=== PATIENT | female | born 1995 | race Caucasian/White ===

== ENCOUNTER 2016-09-30 18:16 | Emergency (ER) | payer OTHER ==
[~2016-09-30] VITALS: Ht 160 cm; Wt 75.1 kg
[2016-09-30 18:20] VITALS: TEMP 36.7; Ht 160 cm; Wt 75.1 kg
[2016-09-30] MEDS ORDERED: INSPMPHMLG (19:24)
[2016-09-30] MEDS ORDERED: PARO30TA PO (19:24)
[2016-09-30] MEDS ORDERED: PARO1TAB27 PO (19:24)
--- NOTE | 2016-09-30 21:46 | EMERGENCY ROOM VISIT NOTE ---
ED Visit Note First contact with patient: 18:24 CHIEF COMPLAINT: Lost insulin-dependent pump site, does not have glucometer HISTORY OF PRESENT ILLNESS: Patient is a 21-year-old insulin-requiring diabetic who uses an and swollen, who presents to the emergency department for evaluation after she lost her in slow pump site and does not have her glucometer to check her blood sugars. She is here from [place] for the concert at [facility]. She states that she had 3 extra pump sites, but due to the heat, and sweating, she lost the sites multiple times throughout the day. She also does not have her glucometer, she believes it may have fallen out of her bag. She has been unable to check her blood sugars. She states that she was able to get a fragile site in her leg about 90 minutes ago, and gave herself a bolus. She felt nauseous, had a headache and felt very thirsty and had a dry mouth earlier in the day. She does admit to consuming 6 or 7 small liquor beverages earlier in the day, she stopped drinking when she started having problems with her pump. She states that she has not had any alcohol for over 2 hours. She has not had much to eat or drink today otherwise. Her blood sugar was checked in triage and was 135, which she states is excellent for her. She would not correct for a BSG of 135 with her pump. PMH: Type I diabetic, diagnosed at age 8. SOCIAL HISTORY: Patient lives at home with her mother. She is employed. Positive tobacco use, social EtOH. PHYSICAL EXAM: Vital Signs: Reviewed Nurse's notes. The patient appears well and is in no acute distress. There is no slurring of speech, pupils are round equal and react to light, and the gait is normal. The patient is alert, oriented, and coherent. ED course: The patient was seen and assessed as above. BSG was checked in triage as stated above and was 135. The patient was ordered a dinner tray and oral fluids, however after 90 minutes when I went to evaluate the patient, she had not yet received her tray and BSG had been rechecked by nursing staff and was 70. She was given orange juice. Patient was beginning to feel little bit symptomatic with the hypoglycemia and felt a little bit shaky/jittery. She remained hemodynamically stable. She did receive her meal tray and ate. She was reassessed roughly 1 hour later, and BSG was rechecked and was 222. She was asleep, feeling better and did not want any subcutaneous insulin-dependent at this time. The patient's grandmother is coming to get her. Her blood sugar was checked when her ride presented to the emergency department and was 291. She was given Regular Insulin 5 units subcutaneous prior to discharge. She is comfortable with this. She will be home within the hour to reestablish her pump , and is comfortable that she can manage this at home on her own. Differential diagnoses entertained included hyperglycemia, hypoglycemia, electrolyte or metabolic abnormality, dehydration, alcohol intoxication, among others. She is not demonstrating any signs of DKA. Medication reconciliation: I attest that I have personally reviewed the patient' s current medication list. Blood pressure screening : Patient was found to have normal blood pressure on screening and does not require follow-up. Problem List Medical Problems: (1) Anxiety Status: Chronic (2) Type I diabetes mellitus Status: Chronic Current/Historical Medications Scheduled Insulin Human Lispro (Insulin Humalog Pump ), 1 EA N/A UD Paroxetine Hcl (Paxil), 30 MG PO DAILY Allergies Coded Allergies: No Known Allergies (Unverified , 09/30/16) Vital Signs Date Time Temp Pulse Resp B/P (MAP) Pulse Ox O2 Delivery O2 Flow Rate FiO2 09/30/16 19:56 108 20 131/86 99 Room Air 09/30/16 18:20 36.7 106 20 128/83 96 Room Air Laboratory Results Test 09/30/16 21:05 Bedside Glucose 222 mg/dl (70-90) Departure Information Impression Primary Impression: Displacement of insulin pump Additional Impression: Hx of insulin dependent diabetes mellitus Patient Instructions My [facility] Additional Instructions Resume your insulin-dependent pump when you return home, and correct blood sugars accordingly. Check blood sugars frequently until within normal range. Seek immediate medical attention for extreme high or low blood sugars, or if you 're unable to correct her blood sugars with your pump, or if he becomes symptomatic. Follow-up with your primary care provider next week for further care and management. Problem Qualifiers Primary Impression: Displacement of insulin pump Encounter type: initial encounter Qualified Codes: T85.624A - Displacement of insulin pump, initial encounter
[2016-09-30] MEDS ORDERED: NovoLIN-R INSULIN PER UNIT CHARGE SC STA (21:58)
[2016-09-30 22:15] VITALS: BP 120/75; PULSE 100; O2SAT 96
== END 2016-09-30 22:18 | disposition home or self-care (01) ==
LOC: C.EDB 18:18 → C.EDC 22:18
DX: T85.624A Displacement of insulin pump, initial encounter (principal); E10.9 Type 1 diabetes mellitus without complications; X58.XXXA Exposure to other specified factors, initial encounter; F17.200 Nicotine dependence, unspecified, uncomplicated; F41.9 Anxiety disorder, unspecified

== ENCOUNTER 2016-12-13 02:34 | Emergency (ER) | payer OTHER ==
[~2016-12-13] VITALS: Ht 157.5 cm; Wt 79.5 kg
[~2016-12-13 02:34] MED LIST: INSPMPHMLG; PARO30TA PO
[2016-12-13 02:37] VITALS: TEMP 37.2; Ht 157.5 cm; Wt 79.5 kg
[2016-12-13] MEDS ORDERED: SODIUM CHLORIDE 0.9% 1000ML 2,000 ML IV STA (02:46)
[2016-12-13] MEDS ORDERED: NovoLIN-R INSULIN PER UNIT CHARGE IV STA (02:46)
[2016-12-13 03:35] LABS: BUN/CREATININE RATIO 8.9 (10-20); CALCIUM 8.4 mg/dl (8.5-10.1); CREATININE 0.81 mg/dl (0.60-1.20); POTASSIUM 3.2 mmol/L (3.5-5.1); PREG INTERNAL NEGATIVE QC NEG CLEAR BACKGROUND; PREG INTERNAL POSITIVE QC POS CONTROL LINE
[2016-12-13 03:51] LABS: BETA-HYDROXYBUTYRATE 2.64 mg/dL (0.2-2.81)
[2016-12-13 04:21] LABS: VEN BLD GAS O2 SATURATION 88.6 %; VEN BLOOD GAS BASE EXCESS -3.7 mEq/L
--- NOTE | 2016-12-13 04:33 | EMERGENCY ROOM VISIT NOTE ---
History Report prepared by Malaibaashish: Cheikh Castro Under the Supervision of: Dr. Lan Duran M.D. First contact with patient: 02:35 Stated Complaint: ALCOHOL OVERDOSE/TYPE I DIABETIC 485 GLUCOSE History of Present Illness The patient is a 21 year old female who presents to the Emergency Room by EMS for evaluation of constant alcohol intoxication beginning shortly prior to arrival. [place] by police. She was breathalyzed and blew a 0.24. The patient has a history of Type I diabetes and was found to have a blood sugar of 485 on scene. She states that her blood sugar tends to run high. She has an insulin pump. The patient denies any chest pain, SOB, fevers, or abdominal pain. She denies any chance of . Source of History: patient, EMS Onset: Shortly prior to arrival Symptom Intensity: BENITO of 0.24 Quality: other (alcohol intoxication) Timing: constant Associated Symptoms: No fevers, No chest pain, No SOB, No abdominal pain Note: Additional symptoms: hyperglycemia. Review of Systems See HPI for pertinent positives & negatives. A total of 10 systems reviewed and were otherwise negative. Past Medical & Surgical Medical Problems: (1) Anxiety (2) Type I diabetes mellitus Family History No pertinent family history stated. Social History Smoking Status: Current Some Day Smoker Occupation Status: student Current/Historical Medications Scheduled Insulin Human Lispro (Insulin Humalog Pump ), 1 EA N/A UD Paroxetine Hcl (Paxil), 30 MG PO DAILY Allergies Coded Allergies: No Known Allergies (Unverified , 12/13/16) Physical Exam Vital Signs Date Time Temp Pulse Resp B/P (MAP) Pulse Ox O2 Delivery O2 Flow Rate FiO2 12/13/16 05:04 97 18 111/66 97 12/13/16 04:40 108 18 111/68 95 Room Air 12/13/16 03:30 101 18 119/63 91 Room Air 12/13/16 02:37 37.2 104 16 133/79 95 Room Air Physical Exam GENERAL: Patient is mildly intoxicated. Smells of alcohol. Well appearing and in no acute distress. HEAD: No evidence of Trauma. AT/NC EYES: Normal conjunctiva. Normal EOM. Pupils equal/reactive. ENT: Mucous membranes moist, no nasal congestion, . NECK: No step-offs, no adenopathy, no meningismus, trachea is midline. LUNGS: No dyspnea. Clear to auscultation and equal bilaterally. No wheeze, no rhonchi. HEART: Regular rate and rhythm. No murmurs, rubs, gallops appreciated. ABDOMEN: Soft, nontender, bowel sounds positive, no masses appreciated, no peritonitis. BACK: No midline tenderness, no CVA tenderness EXTREMITIES: Normal motion all extremities, no cyanosis, no edema. NEUROLOGIC: Intoxicated. Alert, oriented. No acute motor or sensory deficits, no focal weakness, cranial nerves grossly intact. SKIN: No rash, no jaundice, no diaphoresis. Medical Decision & Procedures Laboratory Results 12/13/16 02:53 Test 12/13/16 02:53 12/13/16 03:42 12/13/16 04:57 Anion Gap 11.0 mmol/L (3-11) Est Creatinine Clear Calc Drug Dose 106.4 ml/min Estimated GFR () 119.5 Estimated GFR (Non- 103.1 BUN/Creatinine Ratio 8.9 (10-20) Calcium Level 8.4 mg/dl (8.5-10.1) Beta-Hydroxybutyric Acid 2.64 mg/dL (0.2-2.81) Human Chorionic Gonadotropin, Qual NEG (NEG) Ethyl Alcohol mg/dL 252.0 mg/dl (0-3) Venous Blood pH 7.33 (7.36-7.41) Venous Blood Partial Pressure CO2 43 mmHg (38.0-50.0) Venous Blood Partial Pressure O2 63 mmHg Venous Blood HCO3 22 mmol/L Venous Blood Oxygen Saturation 88.6 % Venous Blood Base Excess -3.7 mEq/L Laboratory results as reviewed by me. Medications Administered Medications (Trade) Dose Ordered Sig/Jefe Route Start Time Stop Time Status Last Admin Dose Admin Sodium Chloride 2,000 ml @ 999 mls/hr Q2H1M STAT IV 12/13/16 02:46 12/13/16 04:46 DC 12/13/16 03:01 999 MLS/HR Insulin Human Regular (novoLIN-R U-100 PER UNIT) 10 units NOW STAT IV 12/13/16 02:46 12/13/16 02:48 DC 12/13/16 03:12 10 UNITS ED Course 0236: The patient was evaluated in room B7. A complete history and physical exam was performed. 0246: Ordered Novolin-R U-100 Per Unit 10 units IV, Sodium Chloride 2000 ml @ 999 mls/hr IV. 0251: I reassessed the patient. She is sleeping. 0430: The patient is awake and would like to go home. Reevaluated the patient. Discussed results and discharge instructions: she verbalized understanding and agreement. She admits that she may have given herself some insulin with her pump prior to arrival. 0500: The patient is ready for discharge. Medical Decision Differential: Alcohol Intoxication, Drug Intoxication, Electrolyte Abnormality, Trauma, Intracranial Event, Toxicological, Excited Delirium, Serotonin Syndrome , amongst other pathologies entertained. 21 yr old female arrives intoxicated with hyperglycemia. Admits DMI that is poorly controlled. Denies any infectious symptoms and admits she rarely keeps BSG under control, especially when drinking etoh. Initially made clear she did not bolus insulin this evening. No trauma nor injuries. Given IV fluids and IV insulin. BSG continued to drop over next 2 hours to point where I felt giving her some OJ necessary. Stabilized at around 80s and she is feeling fine. She does admit that she may have given bolus to herself around EMS time. Would suspect this is why BSG dropped so quickly. She has no headache, neuro issues nor complaints. She states she wishes to go home. Sober friend with her here. They both agree that she will check her BSG at home. Aware RTED if worsening or other concerns. Medication Reconcilliation Current Medication List: was personally reviewed by me Blood Pressure Screening Patient's blood pressure: Elevated blood pressure Blood pressure disposition: Elevated BP felt to be situational Impression Primary Impression: Alcohol use with intoxication Additional Impression: Hyperglycemia Scribe Attestation The scribe's documentation has been prepared under my direction and personally reviewed by me in its entirety. I confirm that the note above accurately reflects all work, treatment, procedures, and medical decision making performed by me. Departure Information Dispostion Home / Self-Care Referrals No Doctor, Assigned (PCP) Patient Instructions My [facility] Additional Instructions Please keep your blood sugars under control. Both short term and residential it is very dangerous to allow your sugars to stay so elevated. Please discuss this further with your primary care provider and or claims agent right of way. You were evaluated in emergency department for intoxication. This is a sign of Alcohol Abuse and should not be taken lightly. You had a blood alcohol level that was significantly elevated. Over the next 24 hours keep well hydrated and eat light meals. Don't drink any more alcohol. This is important. Please discuss this visit with your Primary Care Provider and/or your loved ones. Unless an exceptional circumstance, the Hospital DOES NOT contact anyone DURING your visit, nor is your Protected Medical Information released to anyone without your approval/request. This means we do not contact your Parents, the Police, etc. However, you will likely receive a bill from the Hospital and/or your Insurance company, which will usually be sent to the Primary Policy [place] (often one's Parents). Furthermore, as a student, your visit report will likely be sent to [facility] as your primary care provider, unless other Provider listed. If the Police were involved you will likely be cited for public intoxication. Please contact either [facility] Police or the [place] Police for further information. Call 911 or return to Emergency Department if you develop: Passing out, difficulty breathing, many episodes of vomiting, blood in vomit or stool, abdominal pain, fevers, or other severe symptoms. We are always here to help if you feel you need further evaluation or treatment. Problem Qualifiers
[2016-12-13 05:04] VITALS: BP 111/66; PULSE 97; O2SAT 97
== END 2016-12-13 05:04 | disposition home or self-care (01) ==
LOC: EDBD 02:34 → C.EDB 02:35
DX: F10.129 Alcohol abuse with intoxication, unspecified (principal); Y90.8 Blood alcohol level of 240 mg/100 ml or more; E10.65 Type 1 diabetes mellitus with hyperglycemia; F41.9 Anxiety disorder, unspecified; F17.200 Nicotine dependence, unspecified, uncomplicated; Z79.4 Long term (current) use of insulin